=== PATIENT | female | born 1935 | race Caucasian/White ===

== ENCOUNTER → 2019-03-20 | Outpatient (CLI) | payer MEDICARE, OTHER ==
[2019-03-20] MEDS: BARIUM SUSPENSION 60% (LIQUID EZ PAQUE) 240 ML DOSE PO ONE (10:53)
[2019-03-20] MEDS: BARIUM SUSPENSION 105% (LIQUID POLIBAR PLUS) 240 ML/DOSE PO ONE (10:53)
--- NOTE | 2019-03-20 14:00 | Diagnostic Imaging Report ---
Modified barium swallow. Indication: Dysphagia. The study was performed in the presence of the speech pathologist, Linda. The patient was given several barium-impregnated substances to swallow. This included nectar, honey, puree, soft mechanical (banana and ground beef) to swallow. The patient exhibited an extremely sluggish oral phase. It required considerable effort to swallow all of the materials. With the nectar consistency, there is no clear evidence for aspiration or penetration but the patient did suffer a severe coughing spasm after swallowing the nectar consistency fluid. Consequently I am concerned that the patient may have aspirated a small amount that was not detectable at fluoroscopy. The patient is able to swallow the other materials without aspiration or penetration. However, each material required considerable effort to swallow. Impression: The swallowing mechanism is compromised as there is indirect evidence of aspiration with the nectar consistency fluid. Dictated by: Dictated on workstation # [id number]
== END ==
LOC: RAD 09:12
PROVIDERS: ATTEND Family Medicine
DX: I63.9 Cerebral infarction, unspecified (principal); R13.10 Dysphagia, unspecified
CPT/HCPCS: 74230

== ENCOUNTER 2019-06-10 14:52 | Emergency (ER) | payer MEDICARE, OTHER ==
[~2019-06-10] VITALS: Ht 182.9 cm; Wt 74.8 kg
--- NOTE | 2019-06-10 14:58 | ED GU-Male ---
General Stated Complaint: HYPOTENSION; PENILE BLEEDING Source: family, RN notes reviewed, caregiver Exam Limitations: clinical condition History of Present Illness Date Seen by Provider: Jun 10, 2019 Time Seen by Provider: 14:57 Initial Comments Patient brought to the ED c/ c/o profuse bleeding from his penis p/ being straight cath for an order UA. Noted to be tachycardic, hypotensive, and somewhat lethargic upon arrival. Timing/Duration: this afternoon Severity/Quality: other (not noted to be in any pain) Activities at Onset: other (see above) Prior Genitourinary Problems: none Sexual [place] History: not active Modifying Factors: Improves With Other (none) Associated Symptoms: other (unknown) Allergies and Home Medications Allergies Coded Allergies: No Allergy Information Available (Unverified , 03/20/19) Patient Home Medication List Home Medication List Reviewed: Yes Review of Systems Review of Systems Constitutional: other (unable to obtain from patient) Genitourinary: see HPI, hematuria (gross; profuse) Physical Exam Vital Signs Vital Signs - First Documented 06/10/19 14:55 Temp 98.4 Pulse 109 Resp 24 B/P (MAP) 69/32 (44) Pulse Ox 88 O2 Delivery Nasal Cannula Capillary Refill : Height, Weight, BMI Height: '" Weight: lbs. oz. kg; BMI Method: General Appearance: WD/WN, no apparent distress Cardiovascular: tachycardia Respiratory: no respiratory distress Male: other (profuse bleeding coming from his urethra) Genital/Rectal: other (Incontinent of a large, foul liquid stool her in the ED) Neurologic/Psychiatric: other (lethargic; moaning) Skin: pallor Progress/Results/Core Measures Suspected Sepsis SIRS Temperature: Pulse: Respiratory Rate: Laboratory Tests 06/10/19 15:20: White Blood Count 2.5L Blood Pressure / Mean: Laboratory Tests 06/10/19 15:20: Creatinine 1.57H, INR Comment 1.9H, Platelet Count 239, Total Bilirubin 0.4 Results/Orders Lab Results Laboratory Tests Test 06/10/19 15:20 Range/Units White Blood Count 2.5 L 4.3-11.0 10^3/uL Red Blood Count 3.91 L 4.35-5.85 10^6/uL Hemoglobin 11.7 L 13.3-17.7 G/DL Hematocrit 38 L 40-54 % Mean Corpuscular Volume 97 80-99 FL Mean Corpuscular Hemoglobin 30 25-34 PG Mean Corpuscular Hemoglobin Concent 31 L 32-36 G/DL Red Cell Distribution Width 14.6 H 10.0-14.5 % Platelet Count 239 130-400 10^3/uL Mean Platelet Volume 9.7 7.4-10.4 FL Neutrophils (%) (Auto) 62 42-75 % Lymphocytes (%) (Auto) 35 12-44 % Monocytes (%) (Auto) 1 0-12 % Eosinophils (%) (Auto) 1 0-10 % Basophils (%) (Auto) 0 0-10 % Neutrophils # (Auto) 1.6 L 1.8-7.8 X 10^3 Lymphocytes # (Auto) 0.9 L 1.0-4.0 X 10^3 Monocytes # (Auto) 0.0 0.0-1.0 X 10^3 Eosinophils # (Auto) 0.0 0.0-0.3 10^3/uL Basophils # (Auto) 0.0 0.0-0.1 10^3/uL Prothrombin Time 22.5 H 12.2-14.7 SEC INR Comment 1.9 H 0.8-1.4 Activated Partial Thromboplast Time 75 H 24-35 SEC Sodium Level 140 135-145 MMOL/L Potassium Level 4.9 3.6-5.0 MMOL/L Chloride Level 102 98-107 MMOL/L Carbon Dioxide Level 23 21-32 MMOL/L Anion Gap 15 H 5-14 MMOL/L Blood Urea Nitrogen 25 H 7-18 MG/DL Creatinine 1.57 H 0.60-1.30 MG/DL Estimat Glomerular Filtration Rate 43 BUN/Creatinine Ratio 16 Glucose Level 89 70-105 MG/DL Calcium Level 8.3 L 8.5-10.1 MG/DL Corrected Calcium 8.5 8.5-10.1 MG/DL Total Bilirubin 0.4 0.1-1.0 MG/DL Aspartate Amino Transf (AST/SGOT) 34 5-34 U/L Alanine Aminotransferase (ALT/SGPT) 23 0-55 U/L Alkaline Phosphatase 112 40-136 U/L Total Protein 7.4 6.4-8.2 GM/DL Albumin 3.8 3.2-4.5 GM/DL My Orders Orders - SHELL MATSON DO Ed Iv/Invasive Line Start (06/10/19 14:58) Cbc With Automated Diff (06/10/19 14:58) Comprehensive Metabolic Panel (06/10/19 14:58) Protime With Inr (06/10/19 14:58) Partial Thromboplastin Time (06/10/19 14:58) Ua Culture If Indicated (06/10/19 14:58) Code/Resuscitation (06/10/19 15:44) Vital Signs/I&O 06/10/19 14:55 Temp 98.4 Pulse 109 Resp 24 B/P (MAP) 69/32 (44) Pulse Ox 88 O2 Delivery Nasal Cannula Capillary Refill : Progress Note : Progress Note Discussed the patient @ length c/ the patient's DOA. Patient's condition appear grave based on his presentation and vitals. He is a DNR. She requests only c omfort care @ this time which I think is very reasonable. Patient eventually ceased c/ respiratory effort followed shortly thereafter went into asystole and was pronounced by myself @ 1647. Departure Impression Primary Impression: Cardiopulmonary arrest Additional Impression: Disposition: 20 Condition: Departure-Patient Inst. Referrals: RUSTY JACKSON MD (PCP/Family) Primary Care Physician SHELL MATSON DO Jun 10, 2019 14:57
--- OUTSIDE RECORDS SUMMARY | 2019-06-10 14:58 | XMS REPORT | Continuity of Care Document ---
Author Organization Unknown Address Unknown Allergies There is no data. Medications There is no data. Problems There is no data. Procedures There is no data. Results Test Result Range CBC - 05/06/19 14:07 WHITE BLOOD CELL COUNT 8.6 Thousand/uL 3.8-10.8 RED BLOOD CELL COUNT 4.09 Million/uL 4.20-5.80 HEMOGLOBIN 12.1 g/dL 13.2-17.1 HEMATOCRIT 37.4 % 38.5-50.0 MCV 91.4 fL 80.0-100.0 MCH 29.6 pg 27.0-33.0 MCHC 32.4 g/dL 32.0-36.0 RDW 13.2 % 11.0-15.0 PLATELET COUNT 301 Thousand/uL 140-400 MPV 9.2 fL 7.5-12.5 ABSOLUTE NEUTROPHILS 5581 cells/uL 9573-6413 ABSOLUTE LYMPHOCYTES 1815 cells/uL 850-3900 ABSOLUTE MONOCYTES 645 cells/uL 200-950 ABSOLUTE EOSINOPHILS 525 cells/uL 15-500 ABSOLUTE BASOPHILS 34 cells/uL 0-200 NEUTROPHILS 64.9 % NRG LYMPHOCYTES 21.1 % NRG MONOCYTES 7.5 % NRG EOSINOPHILS 6.1 % NRG BASOPHILS 0.4 % NRG Encounters ACCT No. Visit Date/Time Discharge Status Pt. Type Provider Facility Loc./Unit Complaint [id number] 05/16/2019 13:30:00 05/16/2019 23:59:59 [facility] Outpatient RUSTY JACKSON [facility] [id number] 05/06/2019 16:45:00 Document Registration
[2019-06-10 15:44] LABS: HEMATOCRIT 38 % (40-54); HEMOGLOBIN 11.7 G/DL (13.3-17.7); LYMPHOCYTES % (AUTO) 35 % (12-44); MEAN CORPUSCULAR HEMOGLOBIN 30 PG (25-34); MEAN CORPUSCULAR HGB CONC 31 G/DL (32-36); MEAN CORPUSCULAR VOLUME 97 FL (80-99); MEAN PLATELET VOLUME 9.7 FL (7.4-10.4); MONOCYTES % (AUTO) 1 % (0-12); NEUTROPHILS % (AUTO) 62 % (42-75); PLATELET COUNT 239 10^3/uL (130-400); RED CELL DISTRIBUTION WIDTH 14.6 % (10.0-14.5); WHITE BLOOD COUNT 2.5 10^3/uL (4.3-11.0)
[2019-06-10 15:45] LABS: BASOPHILS % (AUTO) 0 % (0-10); EOSINOPHILS % (AUTO) 1 % (0-10); LYMPHOCYTES # (AUTO) 0.9 X 10^3 (1.0-4.0); NEUTROPHILS # (AUTO) 1.6 X 10^3 (1.8-7.8)
[2019-06-10 15:59] LABS: INR 1.9 (0.8-1.4); PROTHROMBIN TIME PATIENT 22.5 SEC (12.2-14.7)
[2019-06-10 16:20] LABS: ALBUMIN 3.8 GM/DL (3.2-4.5); BILIRUBIN,TOTAL 0.4 MG/DL (0.1-1.0); CALCIUM 8.3 MG/DL (8.5-10.1); CREATININE SERUM 1.57 MG/DL (0.60-1.30); POTASSIUM 4.9 MMOL/L (3.6-5.0); TOTAL PROTEIN 7.4 GM/DL (6.4-8.2)
--- NOTE | 2019-06-10 17:34 | NUR ---
[facility] contacted per family's wishes.
[2019-06-10 18:15] VITALS: BP 0/0
--- NOTE | 2019-06-10 19:31 | NUR ---
1430: Report called from [facility] stating patient had a straight cath and began bleeding from his penis shortly after. 1455: Patient arrived to ED tachycardic, hypotensive, and non-verbal. Large amount of blood and stool on clothing. IV line inserted, patient cleaned, bleeding continues from penis. Per [facility] report, patient is a DNR. Attempted to contact patient's DPOA, unable to reach cousin. 1530: DPOA, cousin Nila Barreto called regarding patient's further care. Per DPOA, patient has poor quality of life and she would like comfort measures only for patient. DPOA speaking with Dr. Whaley via telephone. 1545: DNR order obtained. 1600: DPOA at bedside, patient condition explained, patient bradycardic and apneic. 1647: Asystole noted on cardiac technologist, cardiopulmonary arrest confirmed by Dr. Whaley. Time of 1647. 1700: [place] [facility] called, patient is not a candidate for donation. Referral number [id number]. 1730: [facility] called per DPOA. 1815: [place] [facility] [place]
== END 2019-06-10 18:15 | disposition expired ==
LOC: EDUNIT# 14:52 → ER FS 14:54
DX: I46.9 Cardiac arrest, cause unspecified (principal)
CPT/HCPCS: 36415; 80053; 85025; 85610; 85730